=== PATIENT | female | born 1970 | race Caucasian/White ===

== ENCOUNTER → 2016-08-06 | Outpatient (CLI) | payer OTHER | LOC: CIMAGING 14:40 | PROVIDERS: ATTEND Nurse Practitioner | DX: R05 Cough (principal); R06.00 Dyspnea, unspecified | CPT/HCPCS: 71020-PO ==

== ENCOUNTER → 2018-04-29 | Outpatient (CLI) | payer OTHER | LOC: FIMAGING 06:54 | PROVIDERS: ATTEND Nurse Practitioner | DX: N64.4 Mastodynia (principal); Z98.82 Breast implant status | CPT/HCPCS: 0159T; 77059; C8907 ==

== ENCOUNTER 2018-09-24 18:42 | Observation (INO) | payer OTHER ==
[2018-09-24] MEDS ORDERED: NS 1,000 ML IV ONE (19:38)
[2018-09-24 20:06] LABS: PLATELET COUNT 283 10^3/uL (150-400)
[2018-09-24] MEDS ORDERED: IOPAMIDOL (ISOVUE-300) 100 ML BTL ONE (20:31)
[2018-09-24] MEDS ORDERED: NS 2,300 ML IV ONE (20:33)
--- NOTE | 2018-09-24 21:16 | EDPHY ---
H & P Time Seen by Provider: 09/24/18 19:17 HPI/ROS: Chief complaint. Postoperative fever HPI. Patient is a 48-year-old female presents emergency department with fever. She had silicon implants removed from both breasts 10 days ago on August 14. She still has drains in place. She has also had some upper abdominal pain midline since her surgery with some bloating. She describes as pressure and cramping. She had fever to 101 degrees today. No nausea vomiting or diarrhea. Pain and redness to the right breast. No upper respiratory symptoms or congestion or cough. No urinary symptoms. Patient had MRI of the breasts April 2018 which showed bilateral subpectoral silicone implants but no evidence of rupture. ROS 10 systems were reviewed and negative with the exception of the elements mentioned in the history of present illness Past Medical/Surgical History: Breast implants with removal, uterine ablation, tubal ligation, attention deficit hyperactivity disorder, hypothyroid Social History: , nonsmoker, no alcohol Smoking Status: Never smoked Physical Exam: General Appearance: A female mild distress vital signs are stable. Temp 37.1 degrees. Blood pressure 161/96 Eyes: Pupils equal and round no pallor or injection. ENT, pharynx without injection. Respiratory: There are no retractions, lungs are clear to auscultation. Cardiovascular: Regular rate and rhythm. Gastrointestinal: Abdomen is soft with mild tenderness in the epigastrium. No masses. Normal bowel sounds Neurological: Awake and alert, sensory and motor exams grossly normal. Skin: Mild erythema to the right breast. Bilateral drains from each to breast Musculoskeletal: Neck is supple nontender. Extremities symmetrical, full range of motion. Psychiatric: Patient is oriented X 3, there is no agitation. Constitutional: Initial Vital Signs Temperature (C) 37.1 C 09/24/18 18:52 Heart Rate 100 09/24/18 18:52 Respiratory Rate 18 09/24/18 18:52 Blood Pressure 161/96 H 09/24/18 18:52 O2 Sat (%) 95 09/24/18 18:52 O2 Delivery Mode Room Air Allergies/Adverse Reactions: codeine Allergy (Verified 09/24/18 18:50) Home Medications: Medication Instructions Recorded Adderall 10 MG (RX) 11/02/13 Arnica 09/24/18 DIAZEPAM 09/24/18 Oxycodone HCl 09/24/18 Medical Decision Making - Diagnostics Imaging Results: Imaging Impressions Abdomen CT 09/24/18 19:39 Impression: Normal. Results discussed with Dr. Emmaneul Davidson at 20:57 PM. General information for patients regarding this examination can be found at [email or web address]. If you have questions or comments about this report, please contact me at (hospital) or [phone] (cell). Chest X-Ray 09/24/18 19:39 Impression: No pneumonia. Chest x-ray interpreted by me is normal Abdominal CT shows no source of infection or fever Procedures: Sepsis workup. Lactate elevated at 2.5 IV Rocephin ED Course/Re-evaluation: I consulted discussed the case with patient's breast surgeon Dr. Najera ). She agrees with admission patient and I discussed imaging study results, treatment plan including recommendation for admission. She expresses understanding and agreement I consulted and discussed the case with , hospitalist, who agrees to the admission and see the patient in the ED Differential Diagnosis: Recent breast surgery now with fever. Positive lactate indicating sepsis. Plan is admission. I also considered pneumonia, UTI, abdominal pathology - Data Points Laboratory Results: Laboratory Results 09/24/18 19:45 09/24/18 19:45 09/24/18 09/24/18 09/24/18 19:45 19:45 19:45 WBC 10.04 10^3/uL H 10^3/uL (3.80-9.50) RBC 4.45 10^6/uL 10^6/uL (4.18-5.33) Hgb 13.9 g/dL g/dL (12.6-16.3) Hct 41.0 % % (38.0-47.0) MCV 92.1 fL fL (81.5-99.8) MCH 31.2 pg pg (27.9-34.1) MCHC 33.9 g/dL g/dL (32.4-36.7) RDW 13.5 % % (11.5-15.2) Plt Count 283 10^3/uL 10^3/uL (150-400) MPV 9.2 fL fL (8.7-11.7) Neut % (Auto) 71.3 % % (39.3-74.2) Lymph % (Auto) 20.3 % % (15.0-45.0) [place] % (Auto) 7.4 % % (4.5-13.0) Eos % (Auto) 0.4 % L % (0.6-7.6) Baso % (Auto) 0.4 % % (0.3-1.7) Nucleat RBC Rel Count 0.0 % % (0.0-0.2) Absolute Neuts (auto) 7.16 10^3/uL H 10^3/uL (1.70-6.50) Absolute Lymphs (auto) 2.04 10^3/uL 10^3/uL (1.00-3.00) Absolute Monos (auto) 0.74 10^3/uL 10^3/uL (0.30-0.80) Absolute Eos (auto) 0.04 10^3/uL 10^3/uL (0.03-0.40) Absolute Basos (auto) 0.04 10^3/uL 10^3/uL (0.02-0.10) Absolute Nucleated RBC 0.00 10^3/uL 10^3/uL (0-0.01) Immature Gran % 0.2 % % (0.0-1.1) Immature Gran # 0.02 10^3/uL 10^3/uL (0.00-0.10) VBG Lactic Acid Sodium 133 mEq/L L mEq/L (135-145) Potassium 3.9 mEq/L mEq/L (3.5-5.2) Chloride 101 mEq/L mEq/L (97-110) Carbon Dioxide 22 mEq/l mEq/l (22-31) Anion Gap 10 mEq/L mEq/L (6-14) BUN 10 mg/dL mg/dL (7-23) Creatinine 0.8 mg/dL mg/dL (0.6-1.0) Estimated GFR > 60 Glucose 82 mg/dL mg/dL (70-100) Calcium 9.1 mg/dL mg/dL (8.5-10.4) Lipase 21 IU/L L IU/L (23-300) Urine Color PALE YELLOW Urine Appearance CLEAR Urine pH 6.0 (5.0-7.5) Ur Specific [place] 1.004 (1.002-1.030) Urine Protein NEGATIVE (NEGATIVE) Urine Ketones NEGATIVE (NEGATIVE) Urine Blood NEGATIVE (NEGATIVE) Urine Nitrate NEGATIVE (NEGATIVE) Urine Bilirubin NEGATIVE (NEGATIVE) Urine Urobilinogen NEGATIVE EU EU (0.2-1.0) Ur Leukocyte Esterase NEGATIVE (NEGATIVE) Urine RBC NONE SEEN /hpf /hpf (0-3) Urine WBC 0-1 /hpf /hpf (0-3) Ur Epithelial Cells TRACE /lpf /lpf (NONE-1+) Urine Bacteria TRACE /hpf H /hpf (NONE SEEN) Urine Glucose NEGATIVE (NEGATIVE) Fluid Source Fluid Color Fluid Appearance Fluid WBC Fluid RBC 09/24/18 09/24/18 19:45 19:40 WBC RBC Hgb Hct MCV MCH MCHC RDW Plt Count MPV Neut % (Auto) Lymph % (Auto) [place] % (Auto) Eos % (Auto) Baso % (Auto) Nucleat RBC Rel Count Absolute Neuts (auto) Absolute Lymphs (auto) Absolute Monos (auto) Absolute Eos (auto) Absolute Basos (auto) Absolute Nucleated RBC Immature Gran % Immature Gran # VBG Lactic Acid 2.5 mmol/L H mmol/L (0.7-2.1) Sodium Potassium Chloride Carbon Dioxide Anion Gap BUN Creatinine Estimated GFR Glucose Calcium Lipase Urine Color Urine Appearance Urine pH Ur Specific [place] Urine Protein Urine Ketones Urine Blood Urine Nitrate Urine Bilirubin Urine Urobilinogen Ur Leukocyte Esterase Urine RBC Urine WBC Ur Epithelial Cells Urine Bacteria Urine Glucose Fluid Source OTHER Fluid Color ORANGE Fluid Appearance CLOUDY H Fluid WBC Pending Fluid RBC Pending Microbiology Results: MICROBIOLOGY 09/24/18 20:00 Breast - Aspirate Gram Stain - Final Medications Given: Discontinued Medications Sodium Chloride (Ns) 1,000 mls @ 0 mls/hr IV EDNOW ONE; Wide Open PRN Reason: Protocol Stop: 09/24/18 19:39 Last Admin: 09/24/18 19:59 Dose: 1,000 mls Departure - Departure Disposition: [facility] Inpatient Acute Clinical Impression: Sepsis Qualifiers: Sepsis type: sepsis due to unspecified organism Qualified Code(s): A41.9 - Sepsis, unspecified organism Condition: Fair
[2018-09-24] MEDS ORDERED: NS 1,000 ML IV SCH (21:30)
--- NOTE | 2018-09-24 21:37 | PDGENHP ---
History and Physical - Chief Complaint fever - History of Present Illness Patient is a 48-year-old female who p/w fever. She had silicon implants removed from both breasts 10 days ago on August [address] Najera ([phone]) . She still has drains in place. She had fever to 101 degrees today. Pain and redness to the right breast. Left breast has serous fluid draining No upper respiratory symptoms or congestion or cough. No urinary symptoms. no cp. In the ER: -Rocephin given -Sepsis fluid started -afebrile, tachycardia, no hypotension Past Medical/Surgical History: Breast implants with removal, uterine ablation, tubal ligation, attention deficit hyperactivity disorder, hypothyroid Social History: , nonsmoker, daily social ETOH (2 glasses of wine) Abdomen CT 09/24/18 19:39 Impression: Normal. Results discussed with Dr. Emmanuel Davidson at 20:57 PM. General information for patients regarding this examination can be found at [email or web address]. If you have questions or comments about this report, please contact me at [phone] (hospital) or [phone] (cell). Chest X-Ray 09/24/18 19:39 Impression: No pneumonia. Lactate elevated at 2.5 normal UA History Information - Allergies/Home Medication List Allergies/Adverse Reactions: codeine Allergy (Verified 09/24/18 18:50) Home Medications: Adderall 10 MG (RX) 11/02/13 [Last Taken Unknown] Arnica 09/24/18 [Last Taken Unknown] DIAZEPAM 09/24/18 [Last Taken Unknown] Oxycodone HCl 09/24/18 [Last Taken Unknown] I have personally reviewed and updated: medical history, social history - Social History Smoking Status: Never smoked Review of Systems Review of Systems: ROS: 10pt was reviewed & negative except for what was stated in HPI & below Physical Exam Physical Exam: Temp Pulse Resp BP Pulse Ox 37.4 C 97 18 131/90 H 96 09/24/18 20:27 09/24/18 21:28 09/24/18 21:28 09/24/18 21:28 09/24/18 21:28 Constitutional: no apparent distress Eyes: PERRL, EOMI Ears, Nose, Mouth, Throat: moist mucous membranes, hearing normal Cardiovascular: regular rate and rhythym, No edema Respiratory: no respiratory distress, no rales or rhonchi, clear to auscultation Gastrointestinal: normoactive bowel sounds Skin: warm, other (erythema of right breast, none on the left. no induration bilaterally. Bilateral drains) Neurologic: AAOx3 Psychiatric: interacting appropriately, not anxious, not encephalopathic Lymph, Heme, Immunologic: No petechiae Lab Data & Imaging Review 09/24/18 19:45 09/24/18 19:45 WBC 10.04 10^3/uL (3.80-9.50) H 09/24/18 19:45 RBC 4.45 10^6/uL (4.18-5.33) 09/24/18 19:45 Hgb 13.9 g/dL (12.6-16.3) 09/24/18 19:45 Hct 41.0 % (38.0-47.0) 09/24/18 19:45 MCV 92.1 fL (81.5-99.8) 09/24/18 19:45 MCH 31.2 pg (27.9-34.1) 09/24/18 19:45 MCHC 33.9 g/dL (32.4-36.7) 09/24/18 19:45 RDW 13.5 % (11.5-15.2) 09/24/18 19:45 Plt Count 283 10^3/uL (150-400) 09/24/18 19:45 MPV 9.2 fL (8.7-11.7) 09/24/18 19:45 Neut % (Auto) 71.3 % (39.3-74.2) 09/24/18 19:45 Lymph % (Auto) 20.3 % (15.0-45.0) 09/24/18 19:45 [place] % (Auto) 7.4 % (4.5-13.0) 09/24/18 19:45 Eos % (Auto) 0.4 % (0.6-7.6) L 09/24/18 19:45 Baso % (Auto) 0.4 % (0.3-1.7) 09/24/18 19:45 Nucleat RBC Rel Count 0.0 % (0.0-0.2) 09/24/18 19:45 Absolute Neuts (auto) 7.16 10^3/uL (1.70-6.50) H 09/24/18 19:45 Absolute Lymphs (auto) 2.04 10^3/uL (1.00-3.00) 09/24/18 19:45 Absolute Monos (auto) 0.74 10^3/uL (0.30-0.80) 09/24/18 19:45 Absolute Eos (auto) 0.04 10^3/uL (0.03-0.40) 09/24/18 19:45 Absolute Basos (auto) 0.04 10^3/uL (0.02-0.10) 09/24/18 19:45 Absolute Nucleated RBC 0.00 10^3/uL (0-0.01) 09/24/18 19:45 Immature Gran % 0.2 % (0.0-1.1) 09/24/18 19:45 Immature Gran # 0.02 10^3/uL (0.00-0.10) 09/24/18 19:45 VBG Lactic Acid 2.5 mmol/L (0.7-2.1) H 09/24/18 19:45 Sodium 133 mEq/L (135-145) L 09/24/18 19:45 Potassium 3.9 mEq/L (3.5-5.2) 09/24/18 19:45 Chloride 101 mEq/L (97-110) 09/24/18 19:45 Carbon Dioxide 22 mEq/l (22-31) 09/24/18 19:45 Anion Gap 10 mEq/L (6-14) 09/24/18 19:45 BUN 10 mg/dL (7-23) 09/24/18 19:45 Creatinine 0.8 mg/dL (0.6-1.0) 09/24/18 19:45 Estimated GFR > 60 09/24/18 19:45 Glucose 82 mg/dL (70-100) 09/24/18 19:45 Calcium 9.1 mg/dL (8.5-10.4) 09/24/18 19:45 Lipase 21 IU/L (23-300) L 09/24/18 19:45 Urine Color PALE YELLOW 09/24/18 19:45 Urine Appearance CLEAR 09/24/18 19:45 Urine pH 6.0 (5.0-7.5) 09/24/18 19:45 Ur Specific [place] 1.004 (1.002-1.030) 09/24/18 19:45 Urine Protein NEGATIVE (NEGATIVE) 09/24/18 19:45 Urine Ketones NEGATIVE (NEGATIVE) 09/24/18 19:45 Urine Blood NEGATIVE (NEGATIVE) 09/24/18 19:45 Urine Nitrate NEGATIVE (NEGATIVE) 09/24/18 19:45 Urine Bilirubin NEGATIVE (NEGATIVE) 09/24/18 19:45 Urine Urobilinogen NEGATIVE EU (0.2-1.0) 09/24/18 19:45 Ur Leukocyte Esterase NEGATIVE (NEGATIVE) 09/24/18 19:45 Urine RBC NONE SEEN /hpf (0-3) 09/24/18 19:45 Urine WBC 0-1 /hpf (0-3) 09/24/18 19:45 Ur Epithelial Cells TRACE /lpf (NONE-1+) 09/24/18 19:45 Urine Bacteria TRACE /hpf (NONE SEEN) H 09/24/18 19:45 Urine Glucose NEGATIVE (NEGATIVE) 09/24/18 19:45 Fluid Source OTHER 09/24/18 19:40 Fluid Color ORANGE 09/24/18 19:40 Fluid Appearance CLOUDY H 09/24/18 19:40 Fluid WBC 822 /mm3 (0-0) H 09/24/18 19:40 Fluid RBC 60470 /mm3 (0-0) H 09/24/18 19:40 Assessment & Plan Assessment: #Sepsis, likely early: + Lactic acid, Leukocytosis, Fever, Tachycardia. No Hypotension. No Tachypnea #Likely Post operative Right breast infection #Recent pedal edema, volume overload post operatively after her implant removal -denies hx of CHF Plan: -Cont Rocephin. Have not included coverage for MRSA at this time. Low threshold to start -Doppler of Breasts -Will have Surgery consult, drains are still in place -Given her reported volume overload recently and her BP ok currently, I will slow her fluids down and not complete the sepsis bundle -Trend CRP for now -Pain mgmt -appropriate home meds Total critical care time in this pt meeting sepsis criteria is 55 mins.
[2018-09-24] MEDS ORDERED: ACETAMINOPHEN 325 MG TAB PO PRN (21:43)
[2018-09-24] MEDS ORDERED: ONDANSETRON 4 MG/2 ML VIAL IVP PRN (21:43)
[2018-09-24] MEDS ORDERED: ONDANSETRON DISINTEGRATING 4 MG TAB PO PRN (21:43)
[2018-09-25] MEDS ORDERED: DIAZEPAM 10 MG TAB PO PRN (00:09)
[2018-09-25] MEDS ORDERED: busPIRone 15 MG TAB PO PRN (00:09)
[2018-09-25] MEDS ORDERED: IOPAMIDOL (ISOVUE 370) 100 ML BTL IV ONE (04:55)
--- NOTE | 2018-09-25 05:03 | PDCONSULT ---
Type Caster Note: Acute Care Surgery Consult Referring Physician: Medardo Reed MD CC: fever/chest wall pain HPI: 48 y/o female 10 days s/p bilateral breast implant removal and mastopexy by Dr. Varela. She has had pain in the lower sternal region/epigastrium since surgery. Yesterday she had a fever to 101 degrees and she came to the hospital for evaluation. She had a CXR, CT of the abd/pelvis and culture/gram stain of her LORENZA drain fluid (?which side?). Her initial venous lactate was 2.5. She was started on Ceftriaxone and admitted to the Hospitalist service, surgical consult was requested. PMH: breast augmentation removal implants/mastopexy 08/2018 all: codeine Meds: Adderall, Percocet, Buspar, Valium non-smoker SH: here with /daughter FH: NC ROS: denies dyspnea, cough, sputum, nausea, vomiting, diarrhea no hx DVT PE: T 36.7 P 82 BP 118/66 R18 O2 sat 94 % RA HEENT: no scleral icterus, no adenopathy Lungs: CTA CVS: RRR breasts: uncomplicated recent mammoplasty incisions, serous drainage from single LORENZA drain on each side tenderness over xiphoid/subxiphoid midline Abd: soft/+ BS, non-tender wbc 10.04 > 7.6 VBG 2.5 > 0.8 gram stain LORENZA fluid: no organisms/culture pending Imp: s/p bilateral breast implant removal + mastopexy no clinical signs of post op infection chest wall symptoms likely due to recent surgery Rec: I would not normally culture LORENZA drain fluid that looks serous and would not base treatment on subsequent results. I recommended a CT of the chest to look for undrained fluid collections. Other sources of infection/fever should be considered Naomie Estrada MD, FACS
[2018-09-25 05:13] LABS: PLATELET COUNT 254 10^3/uL (150-400)
--- NOTE | 2018-09-25 05:33 | SOAPPROG ---
Downtime Inpatient MD Late Entry SOAP Note: CT reviewed (radiology report pending) No undrained chest wall fluid collection or signs of post op infection No significant pulmonary infiltrates or pleural effusion Rec: clinical management of fever ID consult if fever recurs Naomie Estrada MD, FACS
[2018-09-25] MEDS ORDERED: Herbals/Supplements -Info Only PO SCH (09:00)
[2018-09-25] MEDS ORDERED: ENOXAPARIN 40 MG/0.4 ML SYR SC SCH (09:00)
[2018-09-25] MEDS: ENOXAPARIN 80 MG/0.8 ML SYR SC SCH ×2 (09:54→21:16)
--- NOTE | 2018-09-25 10:40 | HOSPPROG ---
Hospitalist Progress Note Assessment/Plan: #Presumed Sepsis, possible post-op breast surgery infection: + Lactic acid, Leukocytosis, Fever, Tachycardia. No Hypotension. No Tachypnea -started on empriric ceftriaxone at admission -Bd cx neg so far -afebrile > 24 hours -discussed PE with her/Dr Estrada as possible source fever -will check LE dopplers (and possible UE dopplers depending upon results) -Appreciate Dr Estrada assistance, no surgery indicated so he is OK with full anti-coag for PE -will need to discuss with Dr Estrada re drains but likely will recommend FU as prev advised with Dr Najera (performing surgeon) #new RML PE on chest CT -see above -start 1 mg/kg bid lovenox -discussed NOAcs/coumadin depending upon US results -here Mother in Law is an ICU nurse, so she would like to discuss with her too #Recent B pedal edema, volume overload post operatively after her implant removal -denies hx of CHF -see above, check LE dopplers Lovenox [facility] IM Dispo- > 2 mdts bc of IV abx for presumed sepsis, anticoagulation for new PE Subjective: Feeling better, no further fever. No n/v/CP/SOB. Pain in R UE, says feels deep. Concerned about drains, wants to remove prior to leaving here ( was scheduled to see Dr Najera for this next week). Objective: Vital Signs Temp Pulse Resp BP Pulse Ox 98.2 F 80 16 93/60 L 94 09/25/18 07:54 09/25/18 07:54 09/25/18 07:54 09/25/18 07:54 09/25/18 07:54 Laboratory Results 09/25/18 04:59 09/25/18 04:59 09/23/18 09/24/18 09/25/18 11:59 11:59 11:59 Intake Total 1200 Output Total 55 Balance 1145 - Time Spent With Patient Time Spent with Patient: greater than 35 minutes Time Spent with Patient: Greater than 35 minutes spent on this patients care, greater than 50% of time spent counseling, educating, and coordinating care regarding the above mentioned plan. - Physical Exam Constitutional: no apparent distress, appears nourished Eyes: anicteric sclera Ears, Nose, Mouth, Throat: moist mucous membranes, hearing normal Cardiovascular: regular rate and rhythym, no murmur, rub, or gallop, other (no ADRIENNE, minimal B UEE. Did not examine breast/chest wounds) Respiratory: no respiratory distress, no rales or rhonchi, clear to auscultation Gastrointestinal: normoactive bowel sounds, soft, non-tender abdomen Psychiatric: interacting appropriately, not anxious ICD10 Worksheet Patient Problems: Problems Problem Status Onset Sepsis Acute
[2018-09-25] MEDS: OXYCODONE/APAP 5/325 TAB PO PRN ×2 (12:35→21:16)
--- NOTE | 2018-09-26 08:34 | SOAPPROG ---
SOAP Progress Note Assessment/Plan: Assessment: Plan: Subjective: resting comfortably/ at bedside Objective: Vital Signs Temp Pulse Resp BP Pulse Ox 36.8 C 68 16 99/67 L 96 09/26/18 08:03 09/26/18 08:03 09/26/18 08:03 09/26/18 08:03 09/26/18 08:03 Laboratory Results 09/26/18 04:54 09/26/18 04:54 09/25/18 09/26/18 09/27/18 05:59 05:59 05:59 Intake Total 1200 Output Total 55 75 Balance 1145 -75 Physical Exam - Physical Exam General Appearance: alert, no apparent distress Respiratory: lungs clear, normal breath sounds Cardiac/Chest: regular rate, rhythm, other (mastopexy sites uncomplicated/ minimal erythema at LORENZA exit sites more from local reaction to silk suture/ output serous) ICD10 Worksheet Patient Problems: Problems Problem Status Onset Sepsis Acute
[2018-09-26] MEDS: ENOXAPARIN 80 MG/0.8 ML SYR SC SCH (08:47)
[2018-09-26 11:43] VITALS: BP 103/67
--- NOTE | 2018-09-26 12:47 | GDS ---
[f rep st] DISCHARGE SUMMARY DIAGNOSES: 1. Chest wall pain fever likely secondary to inflammation. No obvious infection noted. 2. Bilateral breast implant removal plus mastopexy. No clinical signs of postop infection. 3. Right middle lobe pulmonary embolus on chest CT. 4. Bilateral lower extremity edema, negative Dopplers. CONSULTATIONS: Dr. Girish Estrada, general surgery. PROCEDURES DONE: Chest CT: Nonocclusive segmental right middle lobe pulmonary artery thromboemboli. Abdominal CT: Normal upper and lower extremity Dopplers, negative for DVT. HOSPITAL COURSE: The patient is a 48-year-old woman presenting with fever. She had silicone implant s removed from both breasts [address] Caldera, but still with drains in place. She had a fever of 101 with pain and redness to the right breast. She is admitted to the hospital with the above pr ocedures done. General Surgery was also consulted to look at the wounds. Evaluation was notable for a small pulmonary emboli, which may have been the cause of her fever. General surgery felt certain that there was no evidence for infection on both of her breasts, and drains were showing clear serous fluid. At this point, he discontinued antibiotics and recommend she follow up with her plastic surg magui on Friday for drain removal. The pain she is experiencing on her chest wall is likely postsurgic al. Unclear evidence of fever, but she did not have any evidence of obvious infection here at the the [facility]. DISCHARGE MEDICATIONS: Please see discharge medication form. She was started on Eliquis for pulmona ry embolus. A free 30 day supply was sent to her pharmacy. She will follow up with her primary care provider for ongoing refills, and she may need to adjust her treatment depending on her insurance. She will likely need 3 months of anticoagulation for her pulmonary embolus. I will defer this decisi on to her primary care provider. TIME SEEN: Total time spent with patient on day of discharge and coordination of care is 35 minutes. Copy requested to: [facility] /[id number]/MODL
== END 2018-09-26 13:32 | disposition home or self-care (01) ==
LOC: INTOOBSV 20:56 → F3E 22:10
PROVIDERS: ADMIT Family Medicine; ATTEND Internal Medicine
DX: T81.40XA Infection following a procedure, unspecified, initial encounter (principal); I26.99 Other pulmonary embolism without acute cor pulmonale; R50.82 Postprocedural fever; R60.0 Localized edema; Z98.86 Personal history of breast implant removal
CPT/HCPCS: 71045; 71260; 74177; 93970; 96361; 96365; 96372; 99285; G0378; J0696; J1650; Q9967

== ENCOUNTER 2018-11-01 18:21 | Emergency (ER) | payer OTHER | END 2018-11-01 19:39 | disposition home or self-care (01) ==